=== PATIENT | male | born 2000 | race Hispanic/Latino ===

== ENCOUNTER 2021-09-28 23:07 | Inpatient (IN) | payer BC ==
[~2021-09-28 23:07] MED LIST: Iopamidol 370 76% 100 ML VIAL ONE
[2021-09-28 23:27] LABS: #Basophils 0.1 thou/uL (0.0-0.2); #Eosinphils 1.7 thou/uL (0.0-0.7); #Lymphocytes 5.6 thou/uL (1.20-3.40); #Monocytes 0.9 thou/uL (0.11-0.59); #Neutrophils 7.6 thou/uL (1.40-6.50); %Basophils 0.5 % (0.0-1.0); %Eosinophils 10.9 % (0.0-10.0); %Lymphocytes 35.2 % (21.0-51.0); %Monocytes 5.8 % (0.0-10.0); %Neutrophils 47.7 % (42.0-75.0); Hemoglobin 15.7 g/dL (14.0-18.0); Mean Corpuscular HGB CONC 34.1 g/dL (32.0-36.0); Mean Corpuscular Hemoglobin 33.2 pg (27.0-31.0); Mean Corpuscular Volume 97.3 fL (78.0-98.0); Mean Platelet Volume 7.4 fL (7.4-10.4); Platelet Count 259 thou/uL (130-400); RBC Distribution Width 11.9 % (11.5-14.5); Red Blood Cell (RBC) Count 4.72 mill/uL (4.70-6.10)
[2021-09-28 23:41] LABS: Actual Bicarbonate (HCO3a) 18.8 mEq/L (22-28); Analyzer IN Cardio ER; Base Excess (BEa) -8.4 mEq/L (-2.0 to +3.0); CO2 Tension 45.2 mmHg (35.0-45.0); Calcium, Ionized (arterial) 1.12 mmol/L (1.12-1.30); Carboxyhemoglobin (COHb) 0.3 gm% (0.0-3.0); Hemoglobin (Hb) 15.3 g/dL (14.0-18.0); O2 Tension (PaO2), arterial 187.4 mmHg (80.0-100.0); Potassium - ABG Lab 3.43 mmol/L (3.70-5.30)
[2021-09-28 23:42] LABS: Puncture Site LBA; pH, Arterial 7.24 (7.35-7.45)
[2021-09-28 23:42] LABS: INR-International Normal Ratio 1.1; Prothrombin Time 14.3 sec (12.0-14.7)
[2021-09-28 23:43] LABS: PTT 30.1 sec (22.9-36.1)
[2021-09-28 23:44] LABS: Acetaminophen Less than 6.0 mcg/mL (10.0-30.0); Alcohol 238 mg/dL (Less than 10); Salicylate Less than 8.0 mg/dL (15.0-30.0)
[2021-09-28 23:45] LABS: ALT (SGPT) 124 U/L (8-55); AST (SGOT) 208 U/L (5-34); Albumin 4.6 g/dL (3.5-5.0); Alkaline Phosphatase 96 U/L (40-110); Anion Gap 14 mmol/L (10-20); BUN (Urea Nitrogen) 10 mg/dL (8.9-20.6); Bilirubin, Total 0.6 mg/dL (0.2-1.2); Calc. Creatinine Clearance 0 mL/min (70-130); Calcium 8.3 mg/dL (7.8-10.44); Carbon Dioxide 22 mmol/L (22-29); Chloride 105 mmol/L (98-107); Globulin 3.2 g/dL (2.4-3.5); Glucose 138 mg/dL (70-105); Potassium 3.3 mmol/L (3.5-5.1); Protein, Total 7.8 g/dL (6.0-8.3); Sodium 138 mmol/L (136-145)
[2021-09-29] MEDS ORDERED: Acetaminophen 650 MG Suppository ONE (00:15)
[2021-09-29] MEDS ORDERED: Insulin Regular 300 UNITS/3 ML VIAL SC PRN (00:25)
[2021-09-29] MEDS ORDERED: Dextrose 50% Abboject 50 ML SYRINGE SLOW IVP PRN (00:25)
[2021-09-29] MEDS ORDERED: Dextrose 5% in Water 1,000 ML IV PRN (00:25)
[2021-09-29] MEDS ORDERED: hydrALAZINE 20 MG/ML VIAL SLOW IVP PRN (00:25)
[2021-09-29 00:31] LABS: Amphetamine Not Detected (NotDetected); Barbiturates Screen Not Detected (NotDetected); Benzodiazepine Screen Not Detected (NotDetected); Cocaine Metabolite Screen Not Detected (NotDetected); Methadone Not Detected (NotDetected); Methamphetamine Not Detected (NotDetected); Opiate Screen Not Detected (NotDetected); Oxycodone Screen Not Detected (NotDetected); Phencyclidine (PCP) Not Detected (NotDetected); THC/Cannabinoid Screen Detected (NotDetected); Tricyclic Screen Not Detected (NotDetected)
[2021-09-29] MEDS ORDERED: Acetaminophen 650 MG/20.3 ML UDCUP PER TUBE PRN (00:32)
[2021-09-29] MEDS ORDERED: Ventilator Sedation Protocol 1 EACH FS ONE (00:33)
[2021-09-29 00:57] LABS: SARS-CoV-2 NAA Rapid Test Not Detected (NotDetected)
[2021-09-29] MEDS ORDERED: Fentanyl BOLUS 250 ML IVPB PRN (01:00)
[2021-09-29] MEDS ORDERED: Fentanyl CADD 100 ML IV SCH (01:00)
[2021-09-29] MEDS ORDERED: DISCONTINUE PREVIOUS NARCOTIC PAIN MEDICATIONS AND BENZODIAZEPINES FS SCH (01:00)
[2021-09-29] MEDS ORDERED: Lorazepam 2 MG/ML VIAL SLOW IVP PRN (01:00)
[2021-09-29] MEDS ORDERED: Propofol BOLUS 1,000 MG/100 ML VIAL IV PRN (01:00)
[2021-09-29] MEDS ORDERED: Morphine 4 MG/ML VIAL SLOW IVP PRN (01:00)
[2021-09-29] MEDS ORDERED: Sodium Chloride 0.9% 1,000 ML IV SCH (01:15)
[2021-09-29 01:35] LABS: Lactic Acid 3.7 mmol/L (0.5-2.2)
[2021-09-29 02:27] LABS: #Eosinphils 0.3 thou/uL (0.0-0.7); #Lymphocytes 2.2 thou/uL (1.20-3.40); #Monocytes 1.9 thou/uL (0.11-0.59); #Neutrophils 13.4 thou/uL (1.40-6.50); %Basophils 0.2 % (0.0-1.0); %Eosinophils 1.4 % (0.0-10.0); %Lymphocytes 12.4 % (21.0-51.0); %Monocytes 10.6 % (0.0-10.0); %Neutrophils 75.4 % (42.0-75.0); Hemoglobin 16.9 g/dL (14.0-18.0); Mean Corpuscular HGB CONC 33.7 g/dL (32.0-36.0); Mean Corpuscular Hemoglobin 33.1 pg (27.0-31.0); Mean Corpuscular Volume 98.2 fL (78.0-98.0); Mean Platelet Volume 7.5 fL (7.4-10.4); Platelet Count 261 thou/uL (130-400); RBC Distribution Width 12.3 % (11.5-14.5); White Blood Cell (WBC) Count 17.7 thou/uL (4.8-10.8)
[2021-09-29 02:54] LABS: Phosphorus 4.9 mg/dL (2.3-4.7)
[2021-09-29 02:55] LABS: Anion Gap 18 mmol/L (10-20); BUN (Urea Nitrogen) 9 mg/dL (8.9-20.6); Calc. Creatinine Clearance 0 mL/min (70-130); Calcium 8.6 mg/dL (7.8-10.44); Carbon Dioxide 19 mmol/L (22-29); Chloride 105 mmol/L (98-107); Glucose 91 mg/dL (70-105); Magnesium 2.2 mg/dL (1.6-2.6); Potassium 3.4 mmol/L (3.5-5.1); Sodium 139 mmol/L (136-145)
[2021-09-29] MEDS ORDERED: Potassium Chloride 40 MEQ in Premix Bag 1 BAG IVPB SCH (04:45)
[2021-09-29 07:42] LABS: Actual Bicarbonate (HCO3a) 18.4 mEq/L (22-28); Base Excess (BEa) -4.7 mEq/L (-2.0 to +3.0); CO2 Tension 29.6 mmHg (35.0-45.0); Carboxyhemoglobin (COHb) 0.7 gm% (0.0-3.0); Hemoglobin (Hb) 15.7 g/dL (14.0-18.0); O2 Tension (PaO2), arterial 97.5 mmHg (80.0-100.0); Potassium - ABG Lab 4.05 mmol/L (3.70-5.30); pH, Arterial 7.41 (7.35-7.45)
[2021-09-29 08:10] LABS: Puncture Site RRA
[2021-09-29] MEDS: Sodium Chloride 0.9% 1,000 ML IV SCH ×2 (08:35→15:45)
[2021-09-29] MEDS: Acetaminophen 650 MG/20.3 ML UDCUP PER TUBE SCH ×3 (08:40→21:19)
[2021-09-29] MEDS: Famotidine/PF 20 mg/2ml Vial SLOW IVP SCH ×2 (08:40→21:14)
[2021-09-29] MEDS ORDERED: Calcium Chloride 13.6 MEQ in Sodium Chloride 0.9% 100 ML IVPB SCH (09:00)
[2021-09-29] MEDS ORDERED: Lidocaine 1% w/Epinephrine 1:100K 20 ML VIAL ONE (09:10)
[2021-09-29] MEDS ORDERED: Propofol 1,000 MG/100 ML VIAL IV ONE (09:16)
[2021-09-29] MEDS ORDERED: CEFAZOLIN 2 GM in Sodium Chloride 0.9% 100 ML IVPB SCH (09:30)
[2021-09-29] MEDS: Amantadine HCl 100 mg Capsule PO SCH ×2 (13:04→21:15)
[2021-09-29 16:14] LABS: Actual Bicarbonate (HCO3a) 19.9 mEq/L (22-28); Base Excess (BEa) -4.3 mEq/L (-2.0 to +3.0); CO2 Tension 33.8 mmHg (35.0-45.0); Calcium, Ionized (arterial) 1.17 mmol/L (1.12-1.30); Carboxyhemoglobin (COHb) 0.3 gm% (0.0-3.0); Hemoglobin (Hb) 14.1 g/dL (14.0-18.0); O2 Tension (PaO2), arterial 121.2 mmHg (80.0-100.0); pH, Arterial 7.39 (7.35-7.45)
[2021-09-29 16:18] LABS: Puncture Site RBA
[2021-09-29] MEDS ORDERED: Amantadine HCl 100 mg Capsule PO SCH (21:00)
[2021-09-30] MEDS: fentaNYL Citrate-0.9 % NaCl/PF 100 ML IV SCH (01:59)
[2021-09-30] MEDS: Sodium Chloride 0.9% 1,000 ML IV SCH ×3 (02:12→18:09)
[2021-09-30] MEDS: Acetaminophen 650 MG/20.3 ML UDCUP PER TUBE SCH ×4 (03:30→21:47)
[2021-09-30 04:31] LABS: Anion Gap 4 mmol/L (10-20); BUN (Urea Nitrogen) 12 mg/dL (8.9-20.6); Calc. Creatinine Clearance 153 mL/min (70-130); Calcium 8.3 mg/dL (7.8-10.44); Carbon Dioxide 29 mmol/L (22-29); Chloride 107 mmol/L (98-107); Glucose 114 mg/dL (70-105); Magnesium 1.9 mg/dL (1.6-2.6); Phosphorus 2.9 mg/dL (2.3-4.7); Sodium 136 mmol/L (136-145)
[2021-09-30 04:37] LABS: #Eosinphils 0.2 thou/uL (0.0-0.7); #Lymphocytes 1.5 thou/uL (1.20-3.40); #Monocytes 1.5 thou/uL (0.11-0.59); #Neutrophils 9.9 thou/uL (1.40-6.50); %Basophils 0.2 % (0.0-1.0); %Eosinophils 1.8 % (0.0-10.0); %Lymphocytes 11.2 % (21.0-51.0); %Monocytes 11.2 % (0.0-10.0); %Neutrophils 75.6 % (42.0-75.0); Hemoglobin 12.5 g/dL (14.0-18.0); Mean Corpuscular HGB CONC 33.4 g/dL (32.0-36.0); Mean Corpuscular Hemoglobin 33.4 pg (27.0-31.0); Mean Platelet Volume 8.1 fL (7.4-10.4); Platelet Count 188 thou/uL (130-400); RBC Distribution Width 12.3 % (11.5-14.5); Red Blood Cell (RBC) Count 3.73 mill/uL (4.70-6.10); White Blood Cell (WBC) Count 13.1 thou/uL (4.8-10.8)
[2021-09-30] MEDS ORDERED: Midazolam HCl 2 mg/2 ml Vial ONE (07:00)
[2021-09-30] MEDS ORDERED: Midazolam HCl 2 mg/2 ml Vial SLOW IVP SCH (07:15)
[2021-09-30] MEDS: Famotidine/PF 20 mg/2ml Vial SLOW IVP SCH ×2 (09:28→21:44)
[2021-09-30] MEDS: Propofol 1,000 MG/100 ML VIAL IV PRN ×2 (09:28→18:08)
[2021-09-30] MEDS: Amantadine HCl 100 mg Capsule PO SCH ×2 (09:40→21:47)
[2021-09-30] MEDS ORDERED: Hydrocortisone Sod Succ/PF 100 mg/2 ml Vial IVP SCH (12:15)
[2021-09-30] MEDS: CEFAZOLIN 2 GM in Sodium Chloride 0.9% 100 ML IVPB SCH ×2 (13:29→22:10)
[2021-09-30] MEDS ORDERED: Lidocaine 1% (PF) 30 ML VIAL ONE (13:35)
[2021-09-30] MEDS ORDERED: ceFAZolin 2 GM/Dextrose 50 ML 2 GM in Premix Bag 1 BAG IVPB SCH (14:00)
[2021-09-30] MEDS ORDERED: CEFAZOLIN 2 GM in Sodium Chloride 0.9% 100 ML IVPB SCH (14:00)
[2021-09-30] MEDS: Hydrocortisone Sod Succ/PF 100 mg/2 ml Vial IVP SCH (18:09)
[2021-10-01] MEDS: Hydrocortisone Sod Succ/PF 100 mg/2 ml Vial IVP SCH ×4 (01:29→17:56)
[2021-10-01] MEDS: Propofol 1,000 MG/100 ML VIAL IV PRN ×4 (02:33→22:48)
[2021-10-01 03:59] LABS: #Lymphocytes 0.8 thou/uL (1.20-3.40); #Monocytes 0.8 thou/uL (0.11-0.59); #Neutrophils 9.9 thou/uL (1.40-6.50); %Eosinophils 0.1 % (0.0-10.0); %Lymphocytes 7.2 % (21.0-51.0); %Monocytes 7.2 % (0.0-10.0); %Neutrophils 85.4 % (42.0-75.0); Hemoglobin 10.7 g/dL (14.0-18.0); Mean Corpuscular HGB CONC 32.8 g/dL (32.0-36.0); Mean Corpuscular Hemoglobin 32.9 pg (27.0-31.0); Mean Platelet Volume 7.9 fL (7.4-10.4); Platelet Count 184 thou/uL (130-400); RBC Distribution Width 11.9 % (11.5-14.5); Red Blood Cell (RBC) Count 3.25 mill/uL (4.70-6.10); White Blood Cell (WBC) Count 11.6 thou/uL (4.8-10.8)
[2021-10-01] MEDS: Acetaminophen 650 MG/20.3 ML UDCUP PER TUBE SCH ×4 (04:00→21:00)
[2021-10-01 04:20] LABS: Anion Gap 17 mmol/L (10-20); BUN (Urea Nitrogen) 11 mg/dL (8.9-20.6); Calc. Creatinine Clearance 155 mL/min (70-130); Calcium 8.3 mg/dL (7.8-10.44); Carbon Dioxide 17 mmol/L (22-29); Chloride 107 mmol/L (98-107); Glucose 126 mg/dL (70-105); Phosphorus 2.8 mg/dL (2.3-4.7); Potassium 4.3 mmol/L (3.5-5.1); Sodium 137 mmol/L (136-145)
[2021-10-01] MEDS: fentaNYL Citrate-0.9 % NaCl/PF 100 ML IV SCH (05:55)
[2021-10-01] MEDS: CEFAZOLIN 2 GM in Sodium Chloride 0.9% 100 ML IVPB SCH ×2 (06:21→15:45)
[2021-10-01] MEDS: Sodium Chloride 0.9% 1,000 ML IV SCH ×2 (06:47→17:55)
[2021-10-01 07:45] LABS: Actual Bicarbonate (HCO3a) 24.6 mEq/L (22-28); Base Excess (BEa) -0.5 mEq/L (-2.0 to +3.0); Calcium, Ionized (arterial) 1.17 mmol/L (1.12-1.30); O2 Tension (PaO2), arterial 90.7 mmHg (80.0-100.0); Potassium - ABG Lab 4.27 mmol/L (3.70-5.30); pH, Arterial 7.39 (7.35-7.45)
[2021-10-01] MEDS ORDERED: Sodium Phosphate 15 MMOL in Sodium Chloride 0.9% 250 ML 250 ML IVPB SCH (07:45)
[2021-10-01 07:47] LABS: Puncture Site RRA
[2021-10-01] MEDS: Amantadine HCl 100 mg Capsule PO SCH ×2 (10:38→21:02)
[2021-10-01] MEDS: Famotidine/PF 20 mg/2ml Vial SLOW IVP SCH ×2 (10:39→21:01)
[2021-10-01] MEDS: Acetaminophen/Codeine 30-300mg Tablet PO SCH ×2 (11:59→17:55)
[2021-10-01] MEDS: Gabapentin 100 MG CAP PO SCH ×2 (15:45→21:01)
[2021-10-01] MEDS ORDERED: Piperacillin/Tazobactam 3.375 GM in Sodium Chloride 0.9% 100 ML IVPB SCH ×2 (16:15→16:45)
[2021-10-01] MEDS ORDERED: Vecuronium 10 MG VIAL ONE (16:17)
[2021-10-01] MEDS ORDERED: Vecuronium 10 MG VIAL IV SCH (17:15)
[2021-10-01 17:17] LABS: Actual Bicarbonate (HCO3a) 23.4 mEq/L (22-28); Base Excess (BEa) 0.8 mEq/L (-2.0 to +3.0); CO2 Tension 32.2 mmHg (35.0-45.0); Calcium, Ionized (arterial) 1.12 mmol/L (1.12-1.30); O2 Tension (PaO2), arterial 75.1 mmHg (80.0-100.0); Potassium - ABG Lab 3.91 mmol/L (3.70-5.30); pH, Arterial 7.48 (7.35-7.45)
[2021-10-01 17:19] LABS: Puncture Site RRA
[2021-10-01] MEDS: Piperacillin/Tazobactam 3.375 GM in Sodium Chloride 0.9% 100 ML IVPB SCH (21:03)
[2021-10-02] MEDS: Acetaminophen/Codeine 30-300mg Tablet PO SCH ×4 (00:10→17:34)
[2021-10-02] MEDS: Hydrocortisone Sod Succ/PF 100 mg/2 ml Vial IVP SCH ×4 (00:11→17:34)
[2021-10-02 03:23] LABS: #Lymphocytes 0.5 thou/uL (1.20-3.40); #Monocytes 0.6 thou/uL (0.11-0.59); #Neutrophils 5.4 thou/uL (1.40-6.50); %Eosinophils 0.2 % (0.0-10.0); %Monocytes 9.7 % (0.0-10.0); %Neutrophils 82.1 % (42.0-75.0); Hemoglobin 9.8 g/dL (14.0-18.0); Mean Corpuscular HGB CONC 33.2 g/dL (32.0-36.0); Mean Corpuscular Hemoglobin 32.7 pg (27.0-31.0); Mean Corpuscular Volume 98.5 fL (78.0-98.0); Mean Platelet Volume 8.3 fL (7.4-10.4); Platelet Count 160 thou/uL (130-400); RBC Distribution Width 11.9 % (11.5-14.5); White Blood Cell (WBC) Count 6.5 thou/uL (4.8-10.8)
[2021-10-02] MEDS: Acetaminophen 650 MG/20.3 ML UDCUP PER TUBE SCH ×4 (03:41→20:53)
[2021-10-02 04:56] LABS: Anion Gap 8 mmol/L (10-20); BUN (Urea Nitrogen) 9 mg/dL (8.9-20.6); Calc. Creatinine Clearance 180 mL/min (70-130); Carbon Dioxide 28 mmol/L (22-29); Chloride 108 mmol/L (98-107); Glucose 138 mg/dL (70-105); Magnesium 2.2 mg/dL (1.6-2.6); Phosphorus 2.1 mg/dL (2.3-4.7); Potassium 3.8 mmol/L (3.5-5.1); Sodium 140 mmol/L (136-145)
[2021-10-02] MEDS: Piperacillin/Tazobactam 3.375 GM in Sodium Chloride 0.9% 100 ML IVPB SCH ×3 (05:32→20:55)
[2021-10-02] MEDS: Sodium Chloride 0.9% 1,000 ML IV SCH ×2 (06:39→18:19)
[2021-10-02] MEDS ORDERED: levETIRAcetam in NS 1,000 MG in Premix Bag 1 BAG IVPB SCH (07:00)
[2021-10-02] MEDS: fentaNYL Citrate-0.9 % NaCl/PF 100 ML IV SCH (07:18)
[2021-10-02] MEDS ORDERED: Potassium Phosphate 30 MMOL in Sodium Chloride 0.9% 250 ML 250 ML IVPB SCH (07:45)
[2021-10-02 08:02] LABS: Actual Bicarbonate (HCO3a) 25.4 mEq/L (22-28); Analyzer IN Cardio OR; Base Excess (BEa) 2.5 mEq/L (-2.0 to +3.0); CO2 Tension 33.3 mmHg (35.0-45.0); Carboxyhemoglobin (COHb) 0.5 gm% (0.0-3.0); Hemoglobin (Hb) 10.3 g/dL (14.0-18.0); O2 Tension (PaO2), arterial 84.5 mmHg (80.0-100.0); Potassium - ABG Lab 3.52 mmol/L (3.70-5.30); Puncture Site RRA
[2021-10-02 08:03] LABS: ALV-art Gradient 159.075 mmHg (0-20)
[2021-10-02] MEDS ORDERED: Calcium Chloride 13.6 MEQ in Sodium Chloride 0.9% 100 ML IVPB SCH (08:30)
[2021-10-02] MEDS: Gabapentin 100 MG CAP PO SCH ×3 (10:02→20:54)
[2021-10-02] MEDS: Polyethylene Glycol 3350 17 GM Packet PO SCH (10:02)
[2021-10-02] MEDS: Famotidine/PF 20 mg/2ml Vial SLOW IVP SCH ×2 (10:06→20:55)
[2021-10-02] MEDS: Saccharomyces boulardii 250 MG CAP PO SCH (10:06)
[2021-10-02] MEDS: Senokot S 8.6-50 MG TAB PO SCH ×2 (10:06→20:54)
[2021-10-02] MEDS: Amantadine HCl 100 mg Capsule PO SCH ×2 (10:29→21:06)
[2021-10-02] MEDS ORDERED: Vecuronium 10 MG VIAL IVP SCH (11:45)
[2021-10-02] MEDS: levETIRAcetam in NS 500 MG in Premix Bag 1 BAG IVPB SCH (20:53)
[2021-10-03] MEDS: Acetaminophen/Codeine 30-300mg Tablet PO SCH ×4 (00:17→18:27)
[2021-10-03] MEDS: Hydrocortisone Sod Succ/PF 100 mg/2 ml Vial IVP SCH ×4 (00:17→18:27)
[2021-10-03] MEDS: Acetaminophen 650 MG/20.3 ML UDCUP PER TUBE SCH ×4 (04:21→22:56)
[2021-10-03 04:49] LABS: #Lymphocytes 0.8 thou/uL (1.20-3.40); #Monocytes 0.8 thou/uL (0.11-0.59); %Eosinophils 0.2 % (0.0-10.0); %Lymphocytes 7.9 % (21.0-51.0); %Monocytes 8.6 % (0.0-10.0); %Neutrophils 83.3 % (42.0-75.0); Hemoglobin 9.8 g/dL (14.0-18.0); Mean Corpuscular Hemoglobin 33.1 pg (27.0-31.0); Mean Platelet Volume 7.9 fL (7.4-10.4); Platelet Count 202 thou/uL (130-400); RBC Distribution Width 12.1 % (11.5-14.5); Red Blood Cell (RBC) Count 2.97 mill/uL (4.70-6.10); White Blood Cell (WBC) Count 9.6 thou/uL (4.8-10.8)
[2021-10-03] MEDS: Piperacillin/Tazobactam 3.375 GM in Sodium Chloride 0.9% 100 ML IVPB SCH ×3 (05:39→21:36)
[2021-10-03] MEDS ORDERED: CEFAZOLIN 1 GM VIAL SLOW IVP SCH (06:00)
[2021-10-03] MEDS ORDERED: Midazolam HCl 2 mg/2 ml Vial SLOW IVP SCH ×2 (06:00→09:30)
[2021-10-03] MEDS ORDERED: Lidocaine 1% w/Epinephrine 1:100K 20 ML VIAL IJ SCH (06:00)
[2021-10-03] MEDS ORDERED: Vecuronium 10 MG VIAL IVP SCH (06:00)
[2021-10-03 07:00] LABS: Anion Gap 15 mmol/L (10-20); BUN (Urea Nitrogen) 11 mg/dL (8.9-20.6); Calc. Creatinine Clearance 181 mL/min (70-130); Calcium 8.3 mg/dL (7.8-10.44); Carbon Dioxide 22 mmol/L (22-29); Chloride 110 mmol/L (98-107); Glucose 125 mg/dL (70-105); Magnesium 2.1 mg/dL (1.6-2.6); Phosphorus 2.9 mg/dL (2.3-4.7); Potassium 3.6 mmol/L (3.5-5.1); Sodium 143 mmol/L (136-145)
[2021-10-03] MEDS: Amantadine HCl 100 mg Capsule PO SCH ×2 (09:25→21:35)
[2021-10-03] MEDS: Famotidine/PF 20 mg/2ml Vial SLOW IVP SCH ×2 (09:25→21:36)
[2021-10-03] MEDS: Gabapentin 100 MG CAP PO SCH ×3 (09:25→21:35)
[2021-10-03] MEDS: Sodium Chloride 0.9% 1,000 ML IV SCH ×2 (09:25→20:48)
[2021-10-03] MEDS: Polyethylene Glycol 3350 17 GM Packet PO SCH (09:26)
[2021-10-03] MEDS: levETIRAcetam in NS 500 MG in Premix Bag 1 BAG IVPB SCH ×2 (09:26→21:38)
[2021-10-03] MEDS: Senokot S 8.6-50 MG TAB PO SCH ×2 (09:27→21:35)
[2021-10-03] MEDS: Saccharomyces boulardii 250 MG CAP PO SCH (09:27)
[2021-10-03] MEDS ORDERED: Lidocaine 1% w/Epinephrine 1:100K 30 ML VIAL NERVE BLCK SCH (09:30)
[2021-10-03] MEDS ORDERED: Fentanyl 100 MCG/2 ML VIAL ONE (11:14)
[2021-10-03] MEDS ORDERED: Norepinephrine 8 MG/0.9% NS 0 ML ONE (11:26)
[2021-10-03] MEDS ORDERED: fentaNYL Citrate/PF 2,000 MCG in Sodium Chloride 0.9% 60 ML IV SCH (11:34)
[2021-10-03] MEDS: Propofol 1,000 MG/100 ML VIAL IV PRN (12:51)
[2021-10-03] MEDS ORDERED: Fentanyl 100 MCG/2 ML VIAL SLOW IVP SCH (13:30)
[2021-10-04] MEDS: Acetaminophen/Codeine 30-300mg Tablet PO SCH ×4 (00:58→18:31)
[2021-10-04] MEDS: Hydrocortisone Sod Succ/PF 100 mg/2 ml Vial IVP SCH ×3 (01:00→21:18)
[2021-10-04] MEDS: Acetaminophen 650 MG/20.3 ML UDCUP PER TUBE SCH ×4 (03:00→21:45)
[2021-10-04] MEDS: Sodium Chloride 0.9% 1,000 ML IV SCH (03:40)
[2021-10-04 04:36] LABS: #Lymphocytes 1.1 thou/uL (1.20-3.40); #Neutrophils 7.3 thou/uL (1.40-6.50); %Basophils 0.2 % (0.0-1.0); %Eosinophils 0.2 % (0.0-10.0); %Lymphocytes 11.3 % (21.0-51.0); %Monocytes 10.8 % (0.0-10.0); %Neutrophils 77.5 % (42.0-75.0); Hemoglobin 9.1 g/dL (14.0-18.0); Mean Corpuscular HGB CONC 33.5 g/dL (32.0-36.0); Mean Corpuscular Hemoglobin 33.3 pg (27.0-31.0); Mean Corpuscular Volume 99.3 fL (78.0-98.0); Mean Platelet Volume 7.7 fL (7.4-10.4); Platelet Count 220 thou/uL (130-400); Red Blood Cell (RBC) Count 2.74 mill/uL (4.70-6.10); White Blood Cell (WBC) Count 9.4 thou/uL (4.8-10.8)
[2021-10-04] MEDS: Piperacillin/Tazobactam 3.375 GM in Sodium Chloride 0.9% 100 ML IVPB SCH (04:52)
[2021-10-04 04:57] LABS: Anion Gap 6 mmol/L (10-20); BUN (Urea Nitrogen) 14 mg/dL (8.9-20.6); Calc. Creatinine Clearance 183 mL/min (70-130); Calcium 8.3 mg/dL (7.8-10.44); Carbon Dioxide 29 mmol/L (22-29); Chloride 109 mmol/L (98-107); Glucose 107 mg/dL (70-105); Magnesium 2.2 mg/dL (1.6-2.6); Phosphorus 3.3 mg/dL (2.3-4.7); Potassium 3.6 mmol/L (3.5-5.1); Sodium 140 mmol/L (136-145)
[2021-10-04] MEDS ORDERED: Potassium Phosphate 30 MMOL in Sodium Chloride 0.9% 250 ML 250 ML IVPB SCH (07:45)
[2021-10-04] MEDS ORDERED: Furosemide 20 MG/2 ML VIAL SLOW IVP SCH ×2 (08:30→19:00)
[2021-10-04] MEDS: Gabapentin 100 MG CAP PO SCH ×3 (09:41→21:17)
[2021-10-04] MEDS: Saccharomyces boulardii 250 MG CAP PO SCH (09:42)
[2021-10-04] MEDS: Famotidine/PF 20 mg/2ml Vial SLOW IVP SCH ×2 (09:42→21:18)
[2021-10-04] MEDS: levETIRAcetam 500 mg/5 ml Oral Solution PER TUBE SCH (09:43)
[2021-10-04] MEDS: Polyethylene Glycol 3350 17 GM Packet PO SCH (09:44)
[2021-10-04] MEDS: levETIRAcetam in NS 500 MG in Premix Bag 1 BAG IVPB SCH (09:47)
[2021-10-04] MEDS: Amantadine HCl 100 mg Capsule PO SCH ×2 (09:55→21:16)
[2021-10-04] MEDS: cefTRIAXone\\ROCEPHIN 2 GM in Sodium Chloride 0.9% 100 ML IVPB SCH (13:08)
[2021-10-04] MEDS: Senokot S 8.6-50 MG TAB PO SCH ×2 (13:17→21:16)
[2021-10-04] MEDS ORDERED: fentaNYL Citrate/PF 2,000 MCG in Sodium Chloride 0.9% 60 ML IV PRN (20:31)
[2021-10-04] MEDS ORDERED: fentaNYL Citrate/PF 2,000 MCG in Sodium Chloride 0.9% 60 ML IV SCH ×2 (20:45→21:50)
[2021-10-04] MEDS: Morphine 4 MG/ML VIAL SLOW IVP PRN (21:14)
[2021-10-05] MEDS: Acetaminophen/Codeine 30-300mg Tablet PO SCH ×5 (01:05→23:51)
[2021-10-05] MEDS: Morphine 4 MG/ML VIAL SLOW IVP PRN ×2 (01:42→22:27)
[2021-10-05] MEDS: Acetaminophen 650 MG/20.3 ML UDCUP PER TUBE SCH ×4 (03:47→21:33)
[2021-10-05 04:52] LABS: #Eosinphils 0.2 thou/uL (0.0-0.7); #Lymphocytes 1.1 thou/uL (1.20-3.40); #Monocytes 1.2 thou/uL (0.11-0.59); #Neutrophils 7.2 thou/uL (1.40-6.50); %Basophils 0.4 % (0.0-1.0); %Eosinophils 1.6 % (0.0-10.0); %Lymphocytes 11.8 % (21.0-51.0); %Monocytes 11.9 % (0.0-10.0); %Neutrophils 74.4 % (42.0-75.0); Hemoglobin 10.4 g/dL (14.0-18.0); Mean Corpuscular HGB CONC 33.7 g/dL (32.0-36.0); Mean Corpuscular Hemoglobin 33.1 pg (27.0-31.0); Mean Corpuscular Volume 98.3 fL (78.0-98.0); Mean Platelet Volume 7.3 fL (7.4-10.4); Platelet Count 294 thou/uL (130-400); RBC Distribution Width 11.9 % (11.5-14.5); Red Blood Cell (RBC) Count 3.14 mill/uL (4.70-6.10); White Blood Cell (WBC) Count 9.7 thou/uL (4.8-10.8)
[2021-10-05 05:12] LABS: Anion Gap 14 mmol/L (10-20); BUN (Urea Nitrogen) 15 mg/dL (8.9-20.6); Calc. Creatinine Clearance 0 mL/min (70-130); Calcium 8.4 mg/dL (7.8-10.44); Carbon Dioxide 25 mmol/L (22-29); Chloride 105 mmol/L (98-107); Glucose 115 mg/dL (70-105); Magnesium 2.2 mg/dL (1.6-2.6); Phosphorus 3.3 mg/dL (2.3-4.7); Potassium 3.1 mmol/L (3.5-5.1); Sodium 141 mmol/L (136-145)
[2021-10-05] MEDS ORDERED: Potassium Chloride 40 MEQ in Premix Bag 1 BAG IVPB SCH ×2 (06:45→17:15)
[2021-10-05] MEDS ORDERED: Morphine 4 MG/ML VIAL SLOW IVP PRN (07:44)
[2021-10-05] MEDS: Hydrocortisone Sod Succ/PF 100 mg/2 ml Vial IVP SCH ×2 (08:30→21:35)
[2021-10-05] MEDS: Famotidine/PF 20 mg/2ml Vial SLOW IVP SCH ×2 (08:30→21:34)
[2021-10-05] MEDS: Senokot S 8.6-50 MG TAB PO SCH ×2 (08:30→21:36)
[2021-10-05] MEDS: Gabapentin 100 MG CAP PO SCH ×3 (08:30→21:34)
[2021-10-05] MEDS: Amantadine HCl 100 mg Capsule PO SCH ×2 (08:30→21:34)
[2021-10-05] MEDS: Saccharomyces boulardii 250 MG CAP PO SCH (08:31)
[2021-10-05] MEDS: Polyethylene Glycol 3350 17 GM Packet PO SCH (08:31)
[2021-10-05] MEDS: levETIRAcetam 500 mg/5 ml Oral Solution PER TUBE SCH ×3 (09:22→21:37)
[2021-10-05 10:50] LABS: SARS-CoV-2 PCR by NAA Not Detected (NotDetected)
[2021-10-05] MEDS: cefTRIAXone\\ROCEPHIN 2 GM in Sodium Chloride 0.9% 100 ML IVPB SCH (13:05)
[2021-10-05 14:16] LABS: Anion Gap 13 mmol/L (10-20); BUN (Urea Nitrogen) 15 mg/dL (8.9-20.6); Calc. Creatinine Clearance 0 mL/min (70-130); Calcium 8.6 mg/dL (7.8-10.44); Carbon Dioxide 25 mmol/L (22-29); Chloride 108 mmol/L (98-107); Glucose 94 mg/dL (70-105); Potassium 3.5 mmol/L (3.5-5.1); Sodium 142 mmol/L (136-145)
[2021-10-05] MEDS: Scopolamine 1.5 mg/72 hour Patch TD SCH (19:14)
[2021-10-06] MEDS: Morphine 4 MG/ML VIAL SLOW IVP PRN ×2 (01:45→03:45)
[2021-10-06] MEDS: Ondansetron PF 4 MG/2 ML Vial IVP PRN (02:00)
[2021-10-06] MEDS: Acetaminophen 650 MG/20.3 ML UDCUP PER TUBE SCH ×4 (03:18→21:20)
[2021-10-06 04:47] LABS: #Eosinphils 0.1 thou/uL (0.0-0.7); #Lymphocytes 1.1 thou/uL (1.20-3.40); #Monocytes 1.2 thou/uL (0.11-0.59); #Neutrophils 8.3 thou/uL (1.40-6.50); %Basophils 0.1 % (0.0-1.0); %Lymphocytes 10.4 % (21.0-51.0); %Monocytes 11.3 % (0.0-10.0); %Neutrophils 77.2 % (42.0-75.0); Hemoglobin 10.8 g/dL (14.0-18.0); Mean Corpuscular HGB CONC 33.7 g/dL (32.0-36.0); Mean Corpuscular Hemoglobin 33.1 pg (27.0-31.0); Mean Corpuscular Volume 98.2 fL (78.0-98.0); Mean Platelet Volume 7.1 fL (7.4-10.4); Platelet Count 350 thou/uL (130-400); Red Blood Cell (RBC) Count 3.27 mill/uL (4.70-6.10); White Blood Cell (WBC) Count 10.8 thou/uL (4.8-10.8)
[2021-10-06 05:16] LABS: Anion Gap 14 mmol/L (10-20); BUN (Urea Nitrogen) 17 mg/dL (8.9-20.6); Calc. Creatinine Clearance 0 mL/min (70-130); Calcium 8.6 mg/dL (7.8-10.44); Carbon Dioxide 24 mmol/L (22-29); Chloride 108 mmol/L (98-107); Glucose 105 mg/dL (70-105); Phosphorus 4.5 mg/dL (2.3-4.7); Potassium 3.8 mmol/L (3.5-5.1); Sodium 142 mmol/L (136-145)
[2021-10-06] MEDS: Acetaminophen/Codeine 30-300mg Tablet PO SCH ×3 (05:41→17:50)
[2021-10-06 05:52] LABS: Magnesium 2.3 mg/dL (1.6-2.6)
[2021-10-06] MEDS ORDERED: Potassium Phosphate 30 MMOL in Sodium Chloride 0.9% 250 ML 250 ML IVPB SCH (07:15)
[2021-10-06] MEDS: Amantadine HCl 100 mg Capsule PO SCH ×2 (07:46→20:54)
[2021-10-06] MEDS: Hydrocortisone Sod Succ/PF 100 mg/2 ml Vial IVP SCH ×2 (07:47→20:43)
[2021-10-06] MEDS: levETIRAcetam 500 mg/5 ml Oral Solution PER TUBE SCH (07:47)
[2021-10-06] MEDS: Senokot S 8.6-50 MG TAB PO SCH ×2 (07:48→20:47)
[2021-10-06] MEDS: Gabapentin 100 MG CAP PO SCH ×3 (07:48→20:45)
[2021-10-06] MEDS: Famotidine/PF 20 mg/2ml Vial SLOW IVP SCH ×2 (07:48→20:45)
[2021-10-06] MEDS: Saccharomyces boulardii 250 MG CAP PO SCH (07:48)
[2021-10-06] MEDS: Polyethylene Glycol 3350 17 GM Packet PO SCH (07:49)
[2021-10-06] MEDS ORDERED: Fentanyl 100 MCG/2 ML VIAL SLOW IVP SCH (09:20)
[2021-10-06] MEDS ORDERED: Furosemide 20 MG/2 ML VIAL SLOW IVP SCH (09:30)
[2021-10-06] MEDS ORDERED: levETIRAcetam 500 mg/5 ml Oral Solution PER TUBE SCH ×2 (10:16→13:00)
[2021-10-06] MEDS: cefTRIAXone\\ROCEPHIN 2 GM in Sodium Chloride 0.9% 100 ML IVPB SCH (11:27)
[2021-10-06] MEDS ORDERED: Fentanyl 100 MCG/2 ML VIAL SLOW IVP STA ×2 (12:31→12:35)
[2021-10-06] MEDS ORDERED: Fentanyl 100 MCG/2 ML VIAL ONE (12:36)
[2021-10-06] MEDS: cloNIDine 0.1 MG TAB PO SCH ×2 (12:58→17:50)
[2021-10-06] MEDS ORDERED: Midazolam HCl 2 mg/2 ml Vial ONE (16:52)
[2021-10-06] MEDS ORDERED: Haloperidol Lactate 5 MG/ML VIAL ONE (17:58)
[2021-10-06] MEDS: Enoxaparin Sodium 40 MG/0.4 ML SYRINGE SC SCH (20:46)
[2021-10-07] MEDS: cloNIDine 0.1 MG TAB PO SCH ×4 (01:06→21:58)
[2021-10-07] MEDS: Acetaminophen/Codeine 30-300mg Tablet PO SCH ×4 (01:07→18:00)
[2021-10-07 04:01] LABS: Anion Gap 15 mmol/L (10-20); BUN (Urea Nitrogen) 19 mg/dL (8.9-20.6); Calc. Creatinine Clearance 150 mL/min (70-130); Calcium 8.8 mg/dL (7.8-10.44); Carbon Dioxide 26 mmol/L (22-29); Chloride 108 mmol/L (98-107); Glucose 111 mg/dL (70-105); Magnesium 2.1 mg/dL (1.6-2.6); Potassium 3.6 mmol/L (3.5-5.1); Sodium 145 mmol/L (136-145)
[2021-10-07] MEDS: Acetaminophen 650 MG/20.3 ML UDCUP PER TUBE SCH ×4 (04:08→21:04)
[2021-10-07] MEDS: Haloperidol Lactate 5 MG/ML VIAL SLOW IVP PRN ×3 (06:14→19:34)
[2021-10-07] MEDS: Morphine 4 MG/ML VIAL SLOW IVP PRN ×3 (06:37→19:37)
[2021-10-07] MEDS: Hydrocortisone Sod Succ/PF 100 mg/2 ml Vial IVP SCH (08:57)
[2021-10-07] MEDS: Polyethylene Glycol 3350 17 GM Packet PO SCH (08:58)
[2021-10-07] MEDS: Gabapentin 300 MG CAP PO SCH ×3 (08:58→21:06)
[2021-10-07] MEDS: Saccharomyces boulardii 250 MG CAP PO SCH (08:59)
[2021-10-07] MEDS: Famotidine/PF 20 mg/2ml Vial SLOW IVP SCH ×2 (08:59→21:06)
[2021-10-07] MEDS: Senokot S 8.6-50 MG TAB PO SCH ×2 (09:00→21:06)
[2021-10-07] MEDS: Amantadine HCl 100 mg Capsule PO SCH ×2 (10:00→21:06)
[2021-10-07] MEDS: cefTRIAXone\\ROCEPHIN 2 GM in Sodium Chloride 0.9% 100 ML IVPB SCH (13:12)
[2021-10-07] MEDS ORDERED: Morphine 4 MG/ML VIAL SLOW IVP SCH (14:45)
[2021-10-07] MEDS: Enoxaparin Sodium 40 MG/0.4 ML SYRINGE SC SCH (21:05)
[2021-10-08] MEDS: Acetaminophen 650 MG/20.3 ML UDCUP PER TUBE SCH ×4 (03:04→21:08)
[2021-10-08] MEDS: Acetaminophen/Codeine 30-300mg Tablet PO SCH ×4 (05:51→16:54)
[2021-10-08] MEDS: cloNIDine 0.1 MG TAB PO SCH ×4 (05:51→16:54)
[2021-10-08] MEDS: Morphine 4 MG/ML VIAL SLOW IVP PRN ×4 (06:06→21:34)
[2021-10-08] MEDS: Haloperidol Lactate 5 MG/ML VIAL SLOW IVP PRN (06:08)
[2021-10-08] MEDS ORDERED: Morphine 4 MG/ML VIAL SLOW IVP PRN (07:24)
[2021-10-08] MEDS: Scopolamine 1.5 mg/72 hour Patch TD SCH (08:45)
[2021-10-08] MEDS: Polyethylene Glycol 3350 17 GM Packet PO SCH (08:45)
[2021-10-08] MEDS: Amantadine HCl 100 mg Capsule PO SCH ×2 (08:46→21:06)
[2021-10-08] MEDS: Gabapentin 300 MG CAP PO SCH ×3 (08:46→21:06)
[2021-10-08] MEDS: Senokot S 8.6-50 MG TAB PO SCH ×2 (08:46→21:05)
[2021-10-08] MEDS: Saccharomyces boulardii 250 MG CAP PO SCH (08:46)
[2021-10-08] MEDS: Famotidine 20 MG TAB PER TUBE SCH ×2 (08:47→21:06)
[2021-10-08] MEDS ORDERED: Lorazepam 2 MG/ML VIAL SLOW IVP STA (09:16)
[2021-10-08] MEDS ORDERED: Lorazepam 2 MG/ML VIAL ONE (09:17)
[2021-10-08] MEDS ORDERED: carBAMazepine 200 MG TAB PER TUBE SCH ×2 (09:30→10:00)
[2021-10-08] MEDS: Baclofen 10 MG TAB PER TUBE SCH ×2 (09:50→21:05)
[2021-10-08] MEDS: cefTRIAXone\\ROCEPHIN 2 GM in Sodium Chloride 0.9% 100 ML IVPB SCH (11:47)
[2021-10-08] MEDS ORDERED: Midazolam HCl 2 mg/2 ml Vial SLOW IVP SCH (14:30)
[2021-10-08] MEDS ORDERED: carBAMazepine 200 MG TAB PO SCH (15:00)
[2021-10-08] MEDS: carBAMazepine 200 MG TAB PO SCH (16:54)
[2021-10-08] MEDS: Enoxaparin Sodium 40 MG/0.4 ML SYRINGE SC SCH (21:06)
[2021-10-08] MEDS: Ondansetron PF 4 MG/2 ML Vial IVP PRN (21:34)
[2021-10-09] MEDS: cloNIDine 0.1 MG TAB PO SCH ×4 (00:15→18:07)
[2021-10-09] MEDS: Acetaminophen/Codeine 30-300mg Tablet PO SCH ×4 (00:51→17:57)
[2021-10-09] MEDS: Morphine 4 MG/ML VIAL SLOW IVP PRN ×3 (00:58→21:38)
[2021-10-09] MEDS: Acetaminophen 650 MG/20.3 ML UDCUP PER TUBE SCH ×4 (03:11→21:03)
[2021-10-09 08:03] LABS: Hemoglobin 11.7 g/dL (14.0-18.0); Mean Corpuscular HGB CONC 32.2 g/dL (32.0-36.0); Mean Corpuscular Hemoglobin 32.5 pg (27.0-31.0); Mean Platelet Volume 7.3 fL (7.4-10.4); Platelet Count 418 thou/uL (130-400); RBC Distribution Width 12.6 % (11.5-14.5); Red Blood Cell (RBC) Count 3.61 mill/uL (4.70-6.10); White Blood Cell (WBC) Count 20.2 thou/uL (4.8-10.8)
[2021-10-09 08:22] LABS: Band 9 % (5-11); Eosinophils 3 % (0-10); Lymphocytes 11 % (21-51); MDiff Complete? YES; Monocytes 9 % (0-10); Neutrophil 67 % (42-75); Platelet Morphology Comment Appears Increased; Polychromasia SLIGHT = 2-3 cells (100X) (0-2/hpf); Reactive Lymphocytes 1 % (0-10)
[2021-10-09 08:23] LABS: Anion Gap 14 mmol/L (10-20); BUN (Urea Nitrogen) 21 mg/dL (8.9-20.6); Calc. Creatinine Clearance 146 mL/min (70-130); Calcium 8.8 mg/dL (7.8-10.44); Carbon Dioxide 24 mmol/L (22-29); Chloride 110 mmol/L (98-107); Glucose 107 mg/dL (70-105); Magnesium 2.3 mg/dL (1.6-2.6); Potassium 3.6 mmol/L (3.5-5.1); Sodium 144 mmol/L (136-145)
[2021-10-09] MEDS ORDERED: Potassium Bicarbonate/Cit Ac 20 MEQ TAB PO SCH (08:45)
[2021-10-09] MEDS: Gabapentin 300 MG CAP PO SCH (09:21)
[2021-10-09] MEDS: Famotidine 20 MG TAB PER TUBE SCH ×2 (09:21→21:04)
[2021-10-09] MEDS: Baclofen 10 MG TAB PER TUBE SCH ×2 (09:21→21:04)
[2021-10-09] MEDS: carBAMazepine 200 MG TAB PO SCH ×3 (09:21→16:21)
[2021-10-09] MEDS: Saccharomyces boulardii 250 MG CAP PO SCH (09:22)
[2021-10-09] MEDS: Polyethylene Glycol 3350 17 GM Packet PO SCH (09:22)
[2021-10-09] MEDS: Senokot S 8.6-50 MG TAB PO SCH ×2 (09:23→21:00)
[2021-10-09] MEDS: Amantadine HCl 100 mg Capsule PO SCH ×2 (09:27→21:03)
[2021-10-09] MEDS: cefTRIAXone\\ROCEPHIN 2 GM in Sodium Chloride 0.9% 100 ML IVPB SCH (12:02)
[2021-10-09] MEDS: Enoxaparin Sodium 40 MG/0.4 ML SYRINGE SC SCH (21:04)
[2021-10-09] MEDS: Ondansetron PF 4 MG/2 ML Vial IVP PRN (21:34)
[2021-10-10] MEDS: cloNIDine 0.1 MG TAB PO SCH ×5 (00:10→23:59)
[2021-10-10] MEDS: Acetaminophen/Codeine 30-300mg Tablet PO SCH ×5 (00:10→23:56)
[2021-10-10] MEDS: Acetaminophen 650 MG/20.3 ML UDCUP PER TUBE SCH ×4 (03:31→21:07)
[2021-10-10] MEDS: Morphine 4 MG/ML VIAL SLOW IVP PRN ×3 (04:14→21:20)
[2021-10-10] MEDS: Ondansetron PF 4 MG/2 ML Vial IVP PRN (04:14)
[2021-10-10 04:54] LABS: Hemoglobin 11.6 g/dL (14.0-18.0); Mean Corpuscular HGB CONC 32.7 g/dL (32.0-36.0); Mean Corpuscular Hemoglobin 32.6 pg (27.0-31.0); Mean Corpuscular Volume 99.9 fL (78.0-98.0); Mean Platelet Volume 7.8 fL (7.4-10.4); Platelet Count 402 thou/uL (130-400); RBC Distribution Width 12.5 % (11.5-14.5); Red Blood Cell (RBC) Count 3.54 mill/uL (4.70-6.10); White Blood Cell (WBC) Count 16.1 thou/uL (4.8-10.8)
[2021-10-10 05:01] LABS: Anion Gap 15 mmol/L (10-20); BUN (Urea Nitrogen) 22 mg/dL (8.9-20.6); Calc. Creatinine Clearance 146 mL/min (70-130); Calcium 9.1 mg/dL (7.8-10.44); Carbon Dioxide 25 mmol/L (22-29); Chloride 109 mmol/L (98-107); Glucose 99 mg/dL (70-105); Magnesium 2.4 mg/dL (1.6-2.6); Phosphorus 4.2 mg/dL (2.3-4.7); Potassium 3.7 mmol/L (3.5-5.1); Sodium 145 mmol/L (136-145)
[2021-10-10 05:18] LABS: Band 4 % (5-11); Eosinophils 4 % (0-10); Lymphocytes 8 % (21-51); MDiff Complete? YES; Monocytes 6 % (0-10); Neutrophil 78 % (42-75); Platelet Morphology Comment Appears Increased; RBC Morphology Normal
[2021-10-10] MEDS ORDERED: Potassium Bicarbonate/Cit Ac 20 MEQ TAB PO SCH (07:45)
[2021-10-10] MEDS: Baclofen 10 MG TAB PER TUBE SCH ×2 (09:09→21:07)
[2021-10-10] MEDS: Famotidine 20 MG TAB PER TUBE SCH ×2 (09:09→21:07)
[2021-10-10] MEDS: Saccharomyces boulardii 250 MG CAP PO SCH (09:09)
[2021-10-10] MEDS: Amantadine HCl 100 mg Capsule PO SCH ×2 (09:09→21:07)
[2021-10-10] MEDS: carBAMazepine 200 MG TAB PO SCH ×3 (09:09→17:42)
[2021-10-10] MEDS: Polyethylene Glycol 3350 17 GM Packet PO SCH (09:10)
[2021-10-10] MEDS: Senokot S 8.6-50 MG TAB PO SCH ×2 (09:10→21:07)
[2021-10-10] MEDS: cefTRIAXone\\ROCEPHIN 2 GM in Sodium Chloride 0.9% 100 ML IVPB SCH (11:20)
[2021-10-10 13:24] VITALS: BMI 21.0
[2021-10-10] MEDS: Enoxaparin Sodium 40 MG/0.4 ML SYRINGE SC SCH (21:07)
[2021-10-10] MEDS ORDERED: Scopolamine 1.5 mg/72 hour Patch TD SCH (23:00)
[2021-10-11] MEDS: Acetaminophen 650 MG/20.3 ML UDCUP PER TUBE SCH ×4 (02:47→20:27)
[2021-10-11] MEDS: Morphine 4 MG/ML VIAL SLOW IVP PRN ×2 (03:59→14:50)
[2021-10-11 05:15] LABS: Anion Gap 14 mmol/L (10-20); BUN (Urea Nitrogen) 25 mg/dL (8.9-20.6); Calc. Creatinine Clearance 137 mL/min (70-130); Calcium 9.3 mg/dL (7.8-10.44); Carbon Dioxide 26 mmol/L (22-29); Chloride 107 mmol/L (98-107); Glucose 90 mg/dL (70-105); Magnesium 2.2 mg/dL (1.6-2.6); Phosphorus 4.2 mg/dL (2.3-4.7); Potassium 4.1 mmol/L (3.5-5.1); Sodium 143 mmol/L (136-145)
[2021-10-11 05:24] LABS: Band 5 % (5-11); Eosinophils 1 % (0-10); Hemoglobin 12.5 g/dL (14.0-18.0); Hypochromia SLIGHT = 6-15 cells (100X) (0-5/hpf); Lymphocytes 20 % (21-51); MDiff Complete? YES; Mean Corpuscular HGB CONC 33.9 g/dL (32.0-36.0); Mean Corpuscular Hemoglobin 33.8 pg (27.0-31.0); Mean Corpuscular Volume 99.7 fL (78.0-98.0); Mean Platelet Volume 7.4 fL (7.4-10.4); Monocytes 9 % (0-10); Neutrophil 65 % (42-75); Platelet Count 490 thou/uL (130-400); Platelet Morphology Comment Appears Increased; RBC Distribution Width 12.3 % (11.5-14.5); Red Blood Cell (RBC) Count 3.71 mill/uL (4.70-6.10); White Blood Cell (WBC) Count 11.7 thou/uL (4.8-10.8)
[2021-10-11] MEDS: Acetaminophen/Codeine 30-300mg Tablet PO SCH ×3 (05:59→17:13)
[2021-10-11] MEDS: cloNIDine 0.1 MG TAB PO SCH ×3 (05:59→17:15)
[2021-10-11] MEDS: Senokot S 8.6-50 MG TAB PO SCH ×2 (08:23→20:30)
[2021-10-11] MEDS: Saccharomyces boulardii 250 MG CAP PO SCH (08:23)
[2021-10-11] MEDS: Famotidine 20 MG TAB PER TUBE SCH ×2 (08:23→20:30)
[2021-10-11] MEDS: Baclofen 10 MG TAB PER TUBE SCH ×2 (08:23→20:29)
[2021-10-11] MEDS: Amantadine HCl 100 mg Capsule PO SCH ×2 (08:24→20:29)
[2021-10-11] MEDS: carBAMazepine 200 MG TAB PO SCH ×3 (08:24→17:14)
[2021-10-11] MEDS: Polyethylene Glycol 3350 17 GM Packet PO SCH (08:24)
[2021-10-11] MEDS: cefTRIAXone\\ROCEPHIN 2 GM in Sodium Chloride 0.9% 100 ML IVPB SCH (12:00)
[2021-10-11] MEDS ORDERED: Morphine 4 MG/ML VIAL SLOW IVP PRN (14:36)
[2021-10-11 18:33] LABS: SARS-CoV-2 NAA Rapid Test Not Detected (NotDetected)
[2021-10-11] MEDS: Enoxaparin Sodium 40 MG/0.4 ML SYRINGE SC SCH (20:29)
[2021-10-12] MEDS: Acetaminophen/Codeine 30-300mg Tablet PO SCH ×2 (00:09→05:44)
[2021-10-12] MEDS: cloNIDine 0.1 MG TAB PO SCH ×2 (00:11→06:17)
[2021-10-12] MEDS: Acetaminophen 650 MG/20.3 ML UDCUP PER TUBE SCH ×2 (03:44→07:45)
[2021-10-12 04:31] LABS: #Basophils 0.1 thou/uL (0.0-0.2); #Eosinphils 0.7 thou/uL (0.0-0.7); #Lymphocytes 2.3 thou/uL (1.20-3.40); #Monocytes 0.9 thou/uL (0.11-0.59); #Neutrophils 6.7 thou/uL (1.40-6.50); %Basophils 0.7 % (0.0-1.0); %Eosinophils 6.7 % (0.0-10.0); %Lymphocytes 21.5 % (21.0-51.0); %Monocytes 8.2 % (0.0-10.0); %Neutrophils 62.8 % (42.0-75.0); Hemoglobin 12.6 g/dL (14.0-18.0); Mean Corpuscular HGB CONC 33.5 g/dL (32.0-36.0); Mean Corpuscular Hemoglobin 33.3 pg (27.0-31.0); Mean Corpuscular Volume 99.4 fL (78.0-98.0); Mean Platelet Volume 7.6 fL (7.4-10.4); Platelet Count 524 thou/uL (130-400); RBC Distribution Width 12.2 % (11.5-14.5); Red Blood Cell (RBC) Count 3.78 mill/uL (4.70-6.10); White Blood Cell (WBC) Count 10.6 thou/uL (4.8-10.8)
[2021-10-12 04:40] VITALS: BP 119/76
[2021-10-12 04:52] LABS: Anion Gap 13 mmol/L (10-20); BUN (Urea Nitrogen) 28 mg/dL (8.9-20.6); Calc. Creatinine Clearance 137 mL/min (70-130); Calcium 9.4 mg/dL (7.8-10.44); Carbon Dioxide 27 mmol/L (22-29); Chloride 107 mmol/L (98-107); Glucose 101 mg/dL (70-105); Magnesium 2.2 mg/dL (1.6-2.6); Phosphorus 4.4 mg/dL (2.3-4.7); Sodium 143 mmol/L (136-145)
[2021-10-12 07:38] VITALS: TEMP 98.4
[2021-10-12] MEDS: Senokot S 8.6-50 MG TAB PO SCH (07:42)
[2021-10-12] MEDS: Baclofen 10 MG TAB PER TUBE SCH (07:43)
[2021-10-12] MEDS: Saccharomyces boulardii 250 MG CAP PO SCH (07:43)
[2021-10-12] MEDS: carBAMazepine 200 MG TAB PO SCH (07:43)
[2021-10-12] MEDS: Famotidine 20 MG TAB PER TUBE SCH (07:43)
[2021-10-12] MEDS: Polyethylene Glycol 3350 17 GM Packet PO SCH (07:43)
[2021-10-12] MEDS: Amantadine HCl 100 mg Capsule PO SCH (07:56)
== END 2021-10-12 09:48 | DRG 4 ==
LOC: ERS 23:07 → EDBD 23:07 → CCU 09-29 00:14
PROVIDERS: ADMIT Surgery; ATTEND Surgery
PROC: 0D9670Z Drainage of Stomach with Drainage Device, Via Natural or Artificial Opening (ICD-10-PCS; 2021-09-29)
PROC: 0W9930Z Drainage of Right Pleural Cavity with Drainage Device, Percutaneous Approach (ICD-10-PCS; 2021-09-30)
PROC: 02HV33Z Insertion of Infusion Device into Superior Vena Cava, Percutaneous Approach (ICD-10-PCS; 2021-09-30)
PROC: 0B113F4 Bypass Trachea to Cutaneous with Tracheostomy Device, Percutaneous Approach (ICD-10-PCS; principal; 2021-10-03)
PROC: 5A1955Z Respiratory Ventilation, Greater than 96 Consecutive Hours (ICD-10-PCS; 2021-10-03)
PROC: 0DH63UZ Insertion of Feeding Device into Stomach, Percutaneous Approach (ICD-10-PCS; 2021-10-03)
PROC: 0BCB8ZZ Extirpation of Matter from Left Lower Lobe Bronchus, Via Natural or Artificial Opening Endoscopic (ICD-10-PCS; 2021-10-08)
PROC: 0BC88ZZ Extirpation of Matter from Left Upper Lobe Bronchus, Via Natural or Artificial Opening Endoscopic (ICD-10-PCS; 2021-10-08)
PROC: 0B9F8ZZ Drainage of Right Lower Lung Lobe, Via Natural or Artificial Opening Endoscopic (ICD-10-PCS; 2021-10-08)
PROC: 0B9C8ZZ Drainage of Right Upper Lung Lobe, Via Natural or Artificial Opening Endoscopic (ICD-10-PCS; 2021-10-08)
PROC: 0B938ZZ Drainage of Right Main Bronchus, Via Natural or Artificial Opening Endoscopic (ICD-10-PCS; 2021-10-08)
DX: S06.6X9A Traumatic subarachnoid hemorrhage with loss of consciousness of unspecified duration, initial encounter (principal); J96.00 Acute respiratory failure, unspecified whether with hypoxia or hypercapnia; J69.0 Pneumonitis due to inhalation of food and vomit; S27.0XXA Traumatic pneumothorax, initial encounter; S12.690A Other displaced fracture of seventh cervical vertebra, initial encounter for closed fracture; S22.31XA Fracture of one rib, right side, initial encounter for closed fracture; E27.40 Unspecified adrenocortical insufficiency; G40.89 Other seizures; D62 Acute posthemorrhagic anemia; S27.322A Contusion of lung, bilateral, initial encounter; Z51.5 Encounter for palliative care; R40.2312 Coma scale, best motor response, none, at arrival to emergency department; R40.2112 Coma scale, eyes open, never, at arrival to emergency department; R40.2212 Coma scale, best verbal response, none, at arrival to emergency department; R40.20 Unspecified coma; S80.812A Abrasion, left lower leg, initial encounter; F10.129 Alcohol abuse with intoxication, unspecified; S20.229A Contusion of unspecified back wall of thorax, initial encounter; R00.0 Tachycardia, unspecified; E87.6 Hypokalemia; M25.69 Stiffness of other specified joint, not elsewhere classified; E83.39 Other disorders of phosphorus metabolism; G93.89 Other specified disorders of brain; E87.5 Hyperkalemia; F90.9 Attention-deficit hyperactivity disorder, unspecified type; B96.20 Unspecified Escherichia coli [E. coli] as the cause of diseases classified elsewhere; S41.112A Laceration without foreign body of left upper arm, initial encounter; F12.10 Cannabis abuse, uncomplicated; Z20.822 Contact with and (suspected) exposure to COVID-19; V47.5XXA Car driver injured in collision with fixed or stationary object in traffic accident, initial encounter; Z78.1 Physical restraint status
CPT/HCPCS: 31624; 36415; 36416; 36600; 70450; 70498; 70551; 71045; 71260; 72125; 72170; 74177; 80048; 80053; 80306; 80307; 82533; 82805; 83605; 83735; 84100; 85007; 85025; 85027; 85610; 85730; 86850; 86900; 86901; 87040; 87070; 87077; 87086; 87149; 87186; 87205; 93005; 93010; 93970; 94002; 94003; 94640; 96365; G0390; J0690; J0696; J1630; J1650; J1720; J1815; J1940; J1953; J2001; J2060; J2250; J2270; J2405; J2543; J2704; J3010; J3480; J3490; J7030; J7050; J7620; P9045; Q9967; S0028; U0002; U0003; U0005

== ENCOUNTER 2022-07-04 12:54 | Outpatient (CLI) | payer BC | END 2022-07-04 12:55 | disposition home or self-care (01) | PROVIDERS: ATTEND Psychiatry & Neurology Neurology | DX: R13.10 Dysphagia, unspecified (principal); R63.30 Feeding difficulties, unspecified; S06.9XAA Unspecified intracranial injury with loss of consciousness status unknown, initial encounter | CPT/HCPCS: 74230 ==